=== PATIENT | male | born 1975 | race Hispanic/Latino ===

== ENCOUNTER 2022-12-05 19:15 | Emergency (ER) | payer OTHER ==
[2022-12-05 20:04] LABS: #Lymphocytes 0.5 thou/uL (1.20-3.40); #Monocytes 0.6 thou/uL (0.11-0.59); %Eosinophils 0.3 % (0.0-10.0); %Lymphocytes 3.7 % (21.0-51.0); %Monocytes 4.5 % (0.0-10.0); %Neutrophils 91.6 % (42.0-75.0); Hemoglobin 15.6 g/dL (14.0-18.0); Mean Corpuscular HGB CONC 34.3 g/dL (32.0-36.0); Mean Corpuscular Hemoglobin 30.1 pg (27.0-31.0); Mean Corpuscular Volume 87.7 fl (78.0-98.0); Mean Platelet Volume 8.8 fL (7.4-10.4); Platelet Count 177 10x3/uL (130-400); RBC Distribution Width 13.2 % (11.5-14.5); Red Blood Cell (RBC) Count 5.18 mill/uL (4.70-6.10); White Blood Cell (WBC) Count 13.1 10x3/uL (4.8-10.8)
[2022-12-05 20:28] LABS: ALT (SGPT) 53 U/L (8-55); AST (SGOT) 32 U/L (5-34); Albumin 4.4 g/dL (3.5-5.0); Alkaline Phosphatase 96 U/L (40-110); Anion Gap 13 mmol/L (10-20); BUN (Urea Nitrogen) 14 mg/dL (8.9-20.6); Bilirubin, Total 0.8 mg/dL (0.2-1.2); Calc. Creatinine Clearance 0 mL/min (70-130); Carbon Dioxide 19 mmol/L (22-29); Chloride 107 mmol/L (98-107); Estimated GFR 101; Globulin 3.6 g/dL (2.4-3.5); Glucose 141 mg/dL (70-105); Potassium 3.6 mmol/L (3.5-5.1); Sodium 135 mmol/L (136-145)
[2022-12-05] MEDS ORDERED: Ondansetron PF 4 MG/2 ML Vial ONE (21:24)
[2022-12-05] MEDS ORDERED: Morphine 4 MG/ML VIAL ONE (21:24)
== END 2022-12-05 23:43 | disposition home or self-care (01) ==
LOC: ERS 19:15
DX: K52.9 Noninfective gastroenteritis and colitis, unspecified (principal); R11.2 Nausea with vomiting, unspecified
CPT/HCPCS: 36415; 74177; 80053; 83690; 85025; 96361; 96374; 96375; J2270; J2405

== ENCOUNTER 2023-05-29 05:27 | Inpatient (IN) | payer OTHER ==
[2023-05-29] MEDS ORDERED: Ondansetron PF 4 MG/2 ML Vial ONE ×2 (05:49→15:06)
[2023-05-29] MEDS ORDERED: Morphine 4 MG/ML VIAL ONE ×5 (06:05→13:26)
[2023-05-29 06:08] LABS: #Eosinphils 0.1 thou/uL (0.0-0.7); #Monocytes 0.9 thou/uL (0.11-0.59); #Neutrophils 12.3 thou/uL (1.40-6.50); %Basophils 0.3 % (0.0-1.0); %Eosinophils 0.7 % (0.0-10.0); %Lymphocytes 10.7 % (21.0-51.0); %Monocytes 6.1 % (0.0-10.0); %Neutrophils 81.6 % (42.0-75.0); Hematocrit 47.1 % (42.0-52.0); Hemoglobin 15.9 g/dL (14.0-18.0); Mean Corpuscular HGB CONC 33.8 g/dL (32.0-36.0); Mean Corpuscular Hemoglobin 29.1 pg (27.0-31.0); Mean Corpuscular Volume 86.3 fl (78.0-98.0); Mean Platelet Volume 10.6 fL (7.4-10.4); Platelet Count 241 10x3/uL (130-400); RBC Distribution Width 14.3 % (11.5-14.5); Red Blood Cell (RBC) Count 5.46 mill/uL (4.70-6.10); White Blood Cell (WBC) Count 15.1 10x3/uL (4.8-10.8)
[2023-05-29 06:38] LABS: ALT (SGPT) 239 U/L (8-55); AST (SGOT) 320 U/L (5-34); Albumin 4.2 g/dL (3.5-5.0); Alkaline Phosphatase 125 U/L (40-110); Anion Gap 17 mmol/L (10-20); BUN (Urea Nitrogen) 14 mg/dL (8.9-20.6); Bilirubin, Total 2.2 mg/dL (0.2-1.2); Calc. Creatinine Clearance 0 mL/min (70-130); Calcium 9.6 mg/dL (7.8-10.44); Carbon Dioxide 18 mmol/L (22-29); Chloride 105 mmol/L (98-107); Estimated GFR 73; Globulin 3.8 g/dL (2.4-3.5); Glucose 165 mg/dL (70-105); Potassium 3.6 mmol/L (3.5-5.1); Sodium 136 mmol/L (136-145)
[2023-05-29] MEDS ORDERED: fentaNYL 50 mcg/mL 1 mL Vial ONE (06:45)
[2023-05-29 07:06] LABS: Lipase 12257 U/L (8-78)
[2023-05-29] MEDS ORDERED: Ketorolac Tromethamine 30 MG/ML VIAL ONE (07:22)
[2023-05-29] MEDS ORDERED: Piperacillin/Tazobactam 4.5 GM VIAL ONE (07:33)
[2023-05-29 07:57] LABS: Bacteria/HPF None Seen HPF (None Seen); Bilirubin Negative (Negative); Blood, Urine Negative (Negative); CAUTI Indications for Culture Pelvic or flank pain; Clarity Clear (Clear); Glucose, Urine (Dipstick) Normal (Negative); Ketone, Urine Negative (Negative); Leukocyte Negative Leu/uL (Negative); Nitrite Negative (Negative); Protein, Urine (Dipstick) Negative (Neg-Trace); RBC/HPF 0-3 HPF (0-3); Specific Gravity, Urine 1.046 (1.002-1.036); Squamous Epithelial None Seen HPF (0-3); Urobilinogen Normal mg/dL (Less than 2); WBC/HPF 0-3 HPF (0-3)
[2023-05-29 07:58] LABS: Urine Culture Reflex No No
[2023-05-29 09:45] LABS: Lactic Acid 1.8 mmol/L (0.5-2.2)
[2023-05-29] MEDS ORDERED: Iopamidol-370 76% 500 ML MDV (1 ML CHARGE) ONE ×2 (10:51)
[2023-05-29] MEDS ORDERED: Ondansetron ODT 4 MG TAB PO PRN (16:19)
[2023-05-29] MEDS ORDERED: Piperacillin/Tazobactam 3.375 GM in Sodium Chloride 0.9% 100 ML IVPB SCH (16:30)
[2023-05-29] MEDS: Lactated Ringer's 1,000 ML IV SCH (17:03)
[2023-05-29] MEDS: Ondansetron PF 4 MG/2 ML Vial IVP PRN ×2 (17:05→23:38)
[2023-05-29] MEDS: Morphine 4 MG/ML VIAL SLOW IVP PRN ×2 (17:05→21:05)
[2023-05-29 17:25] VITALS: BMI 43.6
[2023-05-29 17:48] LABS: Cardiac Risk 2.6 (Less than 4.5)
[2023-05-29] MEDS ORDERED: Piperacillin/Tazobactam 4.5 GM in Sodium Chloride 0.9% 100 ML IVPB SCH (18:00)
[2023-05-29] MEDS ORDERED: Promethazine HCl 12.5 MG in Sodium Chloride 0.9% 50 ML IVPB SCH (20:30)
[2023-05-29] MEDS: Famotidine/PF 20 mg/2ml Vial SLOW IVP SCH (21:04)
[2023-05-29] MEDS: Piperacillin/Tazobactam 3.375 GM in Sodium Chloride 0.9% 100 ML IVPB SCH (21:41)
[2023-05-30] MEDS: Lactated Ringer's 1,000 ML IV SCH ×7 (00:37→23:49)
[2023-05-30] MEDS: Morphine 4 MG/ML VIAL SLOW IVP PRN ×3 (01:53→09:41)
[2023-05-30] MEDS: Ondansetron PF 4 MG/2 ML Vial IVP PRN (05:39)
[2023-05-30] MEDS: Piperacillin/Tazobactam 3.375 GM in Sodium Chloride 0.9% 100 ML IVPB SCH ×3 (05:43→23:06)
[2023-05-30 06:12] LABS: Hemoglobin 17.2 g/dL (14.0-18.0); Mean Corpuscular HGB CONC 34.4 g/dL (32.0-36.0); Mean Corpuscular Hemoglobin 29.3 pg (27.0-31.0); Mean Platelet Volume 11.1 fL (7.4-10.4); Platelet Count 222 10x3/uL (130-400); RBC Distribution Width 14.9 % (11.5-14.5); Red Blood Cell (RBC) Count 5.88 mill/uL (4.70-6.10); White Blood Cell (WBC) Count 29.1 10x3/uL (4.8-10.8)
[2023-05-30 06:25] LABS: Delete Auto Diff?? YES; Manual Diff?? YES
[2023-05-30 06:40] LABS: ALT (SGPT) 183 U/L (8-55); AST (SGOT) 89 U/L (5-34); Albumin 3.7 g/dL (3.5-5.0); Alkaline Phosphatase 112 U/L (40-110); Anion Gap 14 mmol/L (10-20); BUN (Urea Nitrogen) 15 mg/dL (8.9-20.6); Calc. Creatinine Clearance 133 mL/min (70-130); Calcium 8.6 mg/dL (7.8-10.44); Carbon Dioxide 20 mmol/L (22-29); Chloride 108 mmol/L (98-107); Estimated GFR 80; Globulin 3.1 g/dL (2.4-3.5); Glucose 180 mg/dL (70-105); Magnesium 1.5 mg/dL (1.6-2.6); Potassium 3.8 mmol/L (3.5-5.1); Protein, Total 6.8 g/dL (6.0-8.3); Sodium 138 mmol/L (136-145)
[2023-05-30 06:59] LABS: Lipase 1778 U/L (8-78)
[2023-05-30 07:08] LABS: Band 21 % (5-11); CellaVision Operator ID lab.abc; Lymphocytes 2 % (21-51); Monocytes 2 % (0-10); Neutrophil 75 % (42-75); Platelet Adequacy Comment Platelets Normal; RBC Morphology Within Normal Limits; Total Cell Count 101
[2023-05-30] MEDS: Famotidine/PF 20 mg/2ml Vial SLOW IVP SCH ×2 (08:31→21:35)
[2023-05-30] MEDS ORDERED: diphenhydrAMINE 50 MG/ML VIAL IM PRN (12:44)
[2023-05-30] MEDS ORDERED: Promethazine HCl 25 MG/ML VIAL IM PRN (12:44)
[2023-05-30] MEDS ORDERED: Zolpidem Tartrate 5 MG TAB PO PRN (12:44)
[2023-05-30] MEDS ORDERED: Ondansetron PF 4 MG/2 ML Vial IVP PRN (12:44)
[2023-05-30] MEDS ORDERED: diphenhydrAMINE 25 MG CAP PO PRN (12:44)
[2023-05-30] MEDS ORDERED: Naloxone HCl 0.4 mg/ml Vial IV PRN (12:44)
[2023-05-30] MEDS ORDERED: HYDROmorphone 10 mg/100 ml CADD IVPB PRN (12:44)
[2023-05-30] MEDS ORDERED: diphenhydrAMINE 50 MG/ML VIAL IVP PRN (12:44)
[2023-05-30] MEDS ORDERED: Communication Order-Pharmacy FS SCH (12:45)
[2023-05-30] MEDS ORDERED: Lorazepam 2 MG/ML VIAL SLOW IVP PRN (14:29)
[2023-05-30] MEDS ORDERED: Electrolyte Replacement Protocol 1 EACH FS SCH (14:30)
[2023-05-30] MEDS: HYDROmorphone/PF 10 MG in Sodium Chloride 0.9% 99 ML IVPB PRN (14:40)
[2023-05-30] MEDS: Thiamine HCl 200 MG/2 ML VIAL SLOW IVP SCH (14:46)
[2023-05-30 16:56] LABS: Hematocrit 50.6 % (42.0-52.0); Hemoglobin 16.9 g/dL (14.0-18.0); Mean Corpuscular HGB CONC 33.4 g/dL (32.0-36.0); Mean Corpuscular Hemoglobin 28.9 pg (27.0-31.0); Mean Corpuscular Volume 86.6 fl (78.0-98.0); Mean Platelet Volume 11.5 fL (7.4-10.4); Platelet Count 197 10x3/uL (130-400); RBC Distribution Width 15.1 % (11.5-14.5); Red Blood Cell (RBC) Count 5.84 mill/uL (4.70-6.10); White Blood Cell (WBC) Count 29.7 10x3/uL (4.8-10.8)
[2023-05-30 17:08] LABS: Delete Auto Diff?? YES; Manual Diff?? YES
[2023-05-30 17:31] LABS: Band 42 % (5-11); CellaVision Operator ID LAB.KB; Lymphocytes 2 % (21-51); Monocytes 6 % (0-10); Neutrophil 49 % (42-75); Platelet Adequacy Comment Platelets Normal; Polychromasia SLIGHT = 2-3 cells HPF (0-2); Smudge Cells 4.9 %; Total Cell Count 102
[2023-05-30 18:09] LABS: Albumin 3.5 g/dL (3.5-5.0)
[2023-05-30 18:10] LABS: Calcium 8.4 mg/dL (7.8-10.44); Chloride 107 mmol/L (98-107); Potassium 4.7 mmol/L (3.5-5.1); Sodium 134 mmol/L (136-145)
[2023-05-30 18:11] LABS: Globulin 3.4 g/dL (2.4-3.5); Glucose 143 mg/dL (70-105); Protein, Total 6.9 g/dL (6.0-8.3)
[2023-05-30 18:13] LABS: Anion Gap 19 mmol/L (10-20); Bilirubin, Total 1.6 mg/dL (0.2-1.2); Carbon Dioxide 13 mmol/L (22-29)
[2023-05-30 18:14] LABS: Alkaline Phosphatase 95 U/L (40-110); Calc. Creatinine Clearance 141 mL/min (70-130); Estimated GFR 85; Phosphorus 1.8 mg/dL (2.3-4.7)
[2023-05-30 18:15] LABS: BUN (Urea Nitrogen) 16 mg/dL (8.9-20.6)
[2023-05-30 18:16] LABS: AST (SGOT) 71 U/L (5-34); Bilirubin, Direct 0.6 mg/dL (0.1-0.3)
[2023-05-30 18:17] LABS: ALT (SGPT) 150 U/L (8-55); Magnesium 1.5 mg/dL (1.6-2.6)
[2023-05-31] MEDS: Lactated Ringer's 1,000 ML IV SCH ×5 (03:50→18:19)
[2023-05-31] MEDS: Piperacillin/Tazobactam 3.375 GM in Sodium Chloride 0.9% 100 ML IVPB SCH ×2 (06:00→14:16)
[2023-05-31] MEDS: Multivit, Therapeutic 1 TAB PO SCH (08:18)
[2023-05-31] MEDS: Folic Acid 1 MG TAB PO SCH (08:18)
[2023-05-31] MEDS: Famotidine/PF 20 mg/2ml Vial SLOW IVP SCH ×2 (08:18→21:00)
[2023-05-31 10:04] LABS: #Basophils 0.1 thou/uL (0.0-0.2); #Monocytes 1.5 thou/uL (0.11-0.59); %Basophils 0.3 % (0.0-1.0); %Eosinophils 0.1 % (0.0-10.0); %Lymphocytes 4.7 % (21.0-51.0); %Monocytes 6.4 % (0.0-10.0); %Neutrophils 86.4 % (42.0-75.0); Hematocrit 45.7 % (42.0-52.0); Hemoglobin 15.3 g/dL (14.0-18.0); Mean Corpuscular HGB CONC 33.5 g/dL (32.0-36.0); Mean Corpuscular Hemoglobin 29.4 pg (27.0-31.0); Mean Corpuscular Volume 87.7 fl (78.0-98.0); Mean Platelet Volume 10.9 fL (7.4-10.4); Platelet Count 142 10x3/uL (130-400); RBC Distribution Width 14.7 % (11.5-14.5); Red Blood Cell (RBC) Count 5.21 mill/uL (4.70-6.10); White Blood Cell (WBC) Count 24.3 10x3/uL (4.8-10.8)
[2023-05-31 10:30] LABS: ALT (SGPT) 90 U/L (8-55); AST (SGOT) 36 U/L (5-34); Alkaline Phosphatase 67 U/L (40-110); Anion Gap 8 mmol/L (10-20); BUN (Urea Nitrogen) 14 mg/dL (8.9-20.6); Bilirubin, Total 1.4 mg/dL (0.2-1.2); Calc. Creatinine Clearance 174 mL/min (70-130); Calcium 8.1 mg/dL (7.8-10.44); Carbon Dioxide 27 mmol/L (22-29); Chloride 106 mmol/L (98-107); Estimated GFR 106; Globulin 2.9 g/dL (2.4-3.5); Glucose 134 mg/dL (70-105); Protein, Total 5.9 g/dL (6.0-8.3); Sodium 137 mmol/L (136-145)
[2023-05-31 11:45] LABS: Syphilis Antibody Nonreactive (Nonreactive); Syphilis Antibody Index 0.04 S/CO (<1.00 Non-Reactive)
[2023-05-31] MEDS: Thiamine HCl 200 MG/2 ML VIAL SLOW IVP SCH (14:16)
[2023-05-31] MEDS: HYDROmorphone/PF 10 MG in Sodium Chloride 0.9% 99 ML IVPB PRN (16:28)
[2023-06-01] MEDS: Piperacillin/Tazobactam 3.375 GM in Sodium Chloride 0.9% 100 ML IVPB SCH ×4 (00:10→23:00)
[2023-06-01] MEDS: Lactated Ringer's 1,000 ML IV SCH ×5 (02:24→20:27)
[2023-06-01 05:17] LABS: Hematocrit 47.2 % (42.0-52.0); Hemoglobin 15.6 g/dL (14.0-18.0); Mean Corpuscular HGB CONC 33.1 g/dL (32.0-36.0); Mean Corpuscular Hemoglobin 29.1 pg (27.0-31.0); Mean Corpuscular Volume 88.1 fl (78.0-98.0); Mean Platelet Volume 11.3 fL (7.4-10.4); Platelet Count 182 10x3/uL (130-400); RBC Distribution Width 14.7 % (11.5-14.5); Red Blood Cell (RBC) Count 5.36 mill/uL (4.70-6.10); White Blood Cell (WBC) Count 28.3 10x3/uL (4.8-10.8)
[2023-06-01 05:24] LABS: Delete Auto Diff?? YES; Manual Diff?? YES
[2023-06-01 05:40] LABS: ALT (SGPT) 63 U/L (8-55); AST (SGOT) 30 U/L (5-34); Albumin 2.9 g/dL (3.5-5.0); Alkaline Phosphatase 82 U/L (40-110); Anion Gap 11 mmol/L (10-20); BUN (Urea Nitrogen) 16 mg/dL (8.9-20.6); Bilirubin, Total 1.2 mg/dL (0.2-1.2); Calc. Creatinine Clearance 176 mL/min (70-130); Calcium 8.2 mg/dL (7.8-10.44); Carbon Dioxide 26 mmol/L (22-29); Chloride 103 mmol/L (98-107); Estimated GFR 106; Glucose 153 mg/dL (70-105); Potassium 4.1 mmol/L (3.5-5.1); Protein, Total 5.9 g/dL (6.0-8.3); Sodium 136 mmol/L (136-145)
[2023-06-01 05:51] LABS: Band 9 % (5-11); CellaVision Operator ID lab.abc; Metamyelocyte 1 % (0-0); Monocytes 5 % (0-10); Neutrophil 85 % (42-75); Platelet Adequacy Comment Platelets Normal; Polychromasia SLIGHT = 2-3 cells HPF (0-2); RBC Morphology Within Normal Limits; Smudge Cells 5.9 %; Total Cell Count 102
[2023-06-01] MEDS: HYDROmorphone/PF 10 MG in Sodium Chloride 0.9% 99 ML IVPB PRN (07:36)
[2023-06-01] MEDS: Famotidine/PF 20 mg/2ml Vial SLOW IVP SCH ×2 (07:37→21:48)
[2023-06-01] MEDS: Folic Acid 1 MG TAB PO SCH (07:38)
[2023-06-01] MEDS: Multivit, Therapeutic 1 TAB PO SCH (07:38)
[2023-06-01] MEDS: Thiamine HCl 200 MG/2 ML VIAL SLOW IVP SCH (14:35)
[2023-06-01] MEDS: Simethicone Chewable 80 MG TAB PO PRN (21:47)
[2023-06-02] MEDS: HYDROmorphone/PF 10 MG in Sodium Chloride 0.9% 99 ML IVPB PRN (00:01)
[2023-06-02 04:38] LABS: Hematocrit 42.6 % (42.0-52.0); Hemoglobin 14.4 g/dL (14.0-18.0); Mean Corpuscular HGB CONC 33.8 g/dL (32.0-36.0); Mean Corpuscular Hemoglobin 29.4 pg (27.0-31.0); Mean Corpuscular Volume 87.1 fl (78.0-98.0); Mean Platelet Volume 11.6 fL (7.4-10.4); Platelet Count 165 10x3/uL (130-400); RBC Distribution Width 14.5 % (11.5-14.5); Red Blood Cell (RBC) Count 4.89 mill/uL (4.70-6.10); White Blood Cell (WBC) Count 24.9 10x3/uL (4.8-10.8)
[2023-06-02 04:57] LABS: ALT (SGPT) 43 U/L (8-55); AST (SGOT) 23 U/L (5-34); Albumin 2.5 g/dL (3.5-5.0); Alkaline Phosphatase 61 U/L (40-110); Anion Gap 6 mmol/L (10-20); BUN (Urea Nitrogen) 19 mg/dL (8.9-20.6); Calc. Creatinine Clearance 193 mL/min (70-130); Calcium 7.8 mg/dL (7.8-10.44); Carbon Dioxide 27 mmol/L (22-29); Chloride 103 mmol/L (98-107); Estimated GFR 108; Globulin 2.8 g/dL (2.4-3.5); Glucose 148 mg/dL (70-105); Potassium 3.9 mmol/L (3.5-5.1); Protein, Total 5.3 g/dL (6.0-8.3); Sodium 132 mmol/L (136-145)
[2023-06-02 04:59] LABS: Delete Auto Diff?? YES; Manual Diff?? YES
[2023-06-02] MEDS: Lactated Ringer's 1,000 ML IV SCH (05:34)
[2023-06-02 06:23] LABS: Anisocytosis SLIGHT = 6-15 cells HPF (0-5); Band 14 % (5-11); CellaVision Operator ID LAB.JMM; Lymphocytes 3 % (21-51); Macrocytosis SLIGHT = 6-15 cells HPF (0-5); Metamyelocyte 3 % (0-0); Monocytes 3 % (0-10); Myelocyte 4 % (0-0); Neutrophil 69 % (42-75); Platelet Adequacy Comment Platelets Normal; Reactive Lymphocytes 4 % (0-10); Smudge Cells 13.8 %; Total Cell Count 116
[2023-06-02] MEDS: Piperacillin/Tazobactam 3.375 GM in Sodium Chloride 0.9% 100 ML IVPB SCH (06:38)
[2023-06-02] MEDS ORDERED: fentaNYL 50 mcg/mL 1 mL Vial ONE (06:51)
[2023-06-02] MEDS ORDERED: Midazolam HCl 2 mg/2 ml Vial ONE (06:58)
[2023-06-02] MEDS ORDERED: Bupivacaine HCl 0.5%/Epinephrine 1:200,000/PF 30 ml Vial ONE (06:59)
[2023-06-02] MEDS ORDERED: Iopamidol 15 ML ONE (06:59)
[2023-06-02] MEDS ORDERED: Ondansetron PF 4 MG/2 ML Vial ONE (07:39)
[2023-06-02] MEDS ORDERED: Glycopyrrolate 0.2 MG/ML 5 ML SYRINGE ONE (07:39)
[2023-06-02] MEDS ORDERED: Dexamethasone 20 MG/5 ML VIAL ONE (07:39)
[2023-06-02] MEDS ORDERED: NEOSTIGMINE 3 MG/3 ML SYR 3 MG/3 ML SYRINGE ONE (07:39)
[2023-06-02] MEDS ORDERED: Rocuronium Bromide 10 MG/ML (10ML VIAL) ONE (07:39)
[2023-06-02] MEDS ORDERED: PROPOFOL 200 MG/20 ML VIAL ONE (07:39)
[2023-06-02] MEDS ORDERED: Lidocaine 1% PF 5 ML VIAL ONE (07:39)
[2023-06-02] MEDS ORDERED: Morphine 4 MG/ML VIAL SLOW IVP PRN (07:54)
[2023-06-02] MEDS ORDERED: Acetaminophen 500 MG TAB PO SCH (08:00)
[2023-06-02] MEDS ORDERED: SUGAMMADEX SODIUM 200 MG/2 ML VIAL ONE (08:02)
[2023-06-02] MEDS: Sodium Chloride 0.9% 1,000 ML IV SCH ×3 (13:32→23:38)
[2023-06-02] MEDS: Senokot 8.6 MG TAB PO SCH ×2 (13:32→20:56)
[2023-06-02] MEDS: Folic Acid 1 MG TAB PO SCH (13:33)
[2023-06-02] MEDS: Multivit, Therapeutic 1 TAB PO SCH (13:33)
[2023-06-02] MEDS: Thiamine 100 MG TAB PO SCH (13:33)
[2023-06-02] MEDS: Polyethylene Glycol 3350 17 GM Packet PO SCH (13:33)
[2023-06-02] MEDS: Ketorolac Tromethamine 30 MG/ML VIAL IVP SCH ×3 (13:33→23:38)
[2023-06-02] MEDS: Acetaminophen 500 MG TAB PO SCH ×3 (13:50→20:56)
[2023-06-02] MEDS: LevoFLOXacin 750 mg/D5W 750 MG in Premix Bag 1 BAG IVPB SCH (20:55)
[2023-06-03] MEDS: Simethicone Chewable 80 MG TAB PO PRN (01:05)
[2023-06-03] MEDS: Ketorolac Tromethamine 30 MG/ML VIAL IVP SCH ×4 (05:02→23:39)
[2023-06-03 05:54] LABS: Hematocrit 36.9 % (42.0-52.0); Hemoglobin 12.1 g/dL (14.0-18.0); Mean Corpuscular HGB CONC 32.8 g/dL (32.0-36.0); Mean Corpuscular Hemoglobin 28.6 pg (27.0-31.0); Mean Corpuscular Volume 87.2 fl (78.0-98.0); Mean Platelet Volume 11.8 fL (7.4-10.4); Platelet Count 134 10x3/uL (130-400); RBC Distribution Width 14.5 % (11.5-14.5); Red Blood Cell (RBC) Count 4.23 mill/uL (4.70-6.10); White Blood Cell (WBC) Count 18.2 10x3/uL (4.8-10.8)
[2023-06-03 05:58] LABS: Delete Auto Diff?? YES; Manual Diff?? YES
[2023-06-03 06:13] LABS: ALT (SGPT) 68 U/L (8-55); AST (SGOT) 81 U/L (5-34); Albumin 2.7 g/dL (3.5-5.0); Alkaline Phosphatase 75 U/L (40-110); Anion Gap 12 mmol/L (10-20); BUN (Urea Nitrogen) 26 mg/dL (8.9-20.6); Calc. Creatinine Clearance 169 mL/min (70-130); Calcium 7.6 mg/dL (7.8-10.44); Carbon Dioxide 24 mmol/L (22-29); Chloride 101 mmol/L (98-107); Estimated GFR 106; Globulin 3.1 g/dL (2.4-3.5); Glucose 123 mg/dL (70-105); Potassium 3.9 mmol/L (3.5-5.1); Protein, Total 5.8 g/dL (6.0-8.3); Sodium 133 mmol/L (136-145)
[2023-06-03 06:36] LABS: Band 8 % (5-11); CellaVision Operator ID lab.abc; Large Platelets 2.9 % (0-5); Lymphocytes 3 % (21-51); Metamyelocyte 5 % (0-0); Monocytes 10 % (0-10); Myelocyte 2 % (0-0); Neutrophil 73 % (42-75); Platelet Adequacy Comment Platelets Normal; RBC Morphology Within Normal Limits; Smudge Cells 10.8 %; Total Cell Count 102
[2023-06-03] MEDS: Acetaminophen 500 MG TAB PO SCH ×4 (10:26→21:24)
[2023-06-03] MEDS: Multivit, Therapeutic 1 TAB PO SCH (10:26)
[2023-06-03] MEDS: Folic Acid 1 MG TAB PO SCH (10:26)
[2023-06-03] MEDS: Sodium Chloride 0.9% 1,000 ML IV SCH ×3 (10:27→23:40)
[2023-06-03] MEDS: Senokot 8.6 MG TAB PO SCH ×2 (10:27→21:28)
[2023-06-03] MEDS: Polyethylene Glycol 3350 17 GM Packet PO SCH (10:27)
[2023-06-03] MEDS: traMADol HCl 50 MG TAB PO PRN ×2 (10:36→21:24)
[2023-06-03] MEDS: Thiamine 100 MG TAB PO SCH (10:36)
[2023-06-03] MEDS: LevoFLOXacin 750 mg/D5W 750 MG in Premix Bag 1 BAG IVPB SCH (21:27)
[2023-06-04] MEDS: traMADol HCl 50 MG TAB PO PRN ×2 (04:51→23:13)
[2023-06-04] MEDS: Ketorolac Tromethamine 30 MG/ML VIAL IVP SCH ×4 (05:59→23:07)
[2023-06-04 08:18] LABS: Hematocrit 35.3 % (42.0-52.0); Hemoglobin 12.2 g/dL (14.0-18.0); Mean Corpuscular HGB CONC 34.6 g/dL (32.0-36.0); Mean Corpuscular Hemoglobin 29.3 pg (27.0-31.0); Mean Corpuscular Volume 84.9 fl (78.0-98.0); Mean Platelet Volume 11.6 fL (7.4-10.4); Platelet Count 127 10x3/uL (130-400); RBC Distribution Width 14.3 % (11.5-14.5); Red Blood Cell (RBC) Count 4.16 mill/uL (4.70-6.10); White Blood Cell (WBC) Count 16.3 10x3/uL (4.8-10.8)
[2023-06-04] MEDS: Acetaminophen 500 MG TAB PO SCH ×5 (08:34→20:21)
[2023-06-04] MEDS: Polyethylene Glycol 3350 17 GM Packet PO SCH (08:34)
[2023-06-04] MEDS: Multivit, Therapeutic 1 TAB PO SCH (08:35)
[2023-06-04] MEDS: Thiamine 100 MG TAB PO SCH (08:35)
[2023-06-04] MEDS: Senokot 8.6 MG TAB PO SCH ×2 (08:35→20:21)
[2023-06-04] MEDS: Folic Acid 1 MG TAB PO SCH (08:36)
[2023-06-04 08:46] LABS: ALT (SGPT) 79 U/L (8-55); AST (SGOT) 75 U/L (5-34); Albumin 2.7 g/dL (3.5-5.0); Alkaline Phosphatase 74 U/L (40-110); Anion Gap 21 mmol/L (10-20); BUN (Urea Nitrogen) 18 mg/dL (8.9-20.6); Bilirubin, Total 0.8 mg/dL (0.2-1.2); Calc. Creatinine Clearance 199 mL/min (70-130); Calcium 7.5 mg/dL (7.8-10.44); Carbon Dioxide 19 mmol/L (22-29); Chloride 103 mmol/L (98-107); Estimated GFR 111; Globulin 2.7 g/dL (2.4-3.5); Glucose 127 mg/dL (70-105); Potassium 3.5 mmol/L (3.5-5.1); Protein, Total 5.4 g/dL (6.0-8.3); Sodium 139 mmol/L (136-145)
[2023-06-04] MEDS: Sodium Chloride 0.9% 1,000 ML IV SCH ×3 (08:54→23:07)
[2023-06-04 09:27] LABS: Manual Diff?? YES
[2023-06-04 09:28] LABS: Delete Auto Diff?? YES
[2023-06-04 12:42] LABS: Band 14 % (5-11); Lymphocytes 5 % (21-51); Metamyelocyte 3 % (0-0); Monocytes 6 % (0-10); Neutrophil 71 % (42-75); Nucleated RBC (Manual Ct) 1 % (0); Reactive Lymphocytes 1 % (0-10)
[2023-06-04 12:43] LABS: Platelet Adequacy Comment Appears Decreased; Polychromasia SLIGHT = 2-3 cells (100X) (0-2/hpf)
[2023-06-04] MEDS: LevoFLOXacin 750 mg/D5W 750 MG in Premix Bag 1 BAG IVPB SCH (19:41)
[2023-06-05] MEDS: Simethicone Chewable 80 MG TAB PO PRN (04:09)
[2023-06-05] MEDS: Ketorolac Tromethamine 30 MG/ML VIAL IVP SCH (04:50)
[2023-06-05] MEDS: traMADol HCl 50 MG TAB PO PRN ×2 (04:53→20:55)
[2023-06-05 05:32] LABS: Hemoglobin 11.7 g/dL (14.0-18.0); Mean Corpuscular HGB CONC 33.4 g/dL (32.0-36.0); Mean Corpuscular Volume 86.6 fl (78.0-98.0); Platelet Count 158 10x3/uL (130-400); RBC Distribution Width 14.7 % (11.5-14.5); Red Blood Cell (RBC) Count 4.04 mill/uL (4.70-6.10); White Blood Cell (WBC) Count 14.5 10x3/uL (4.8-10.8)
[2023-06-05 05:54] LABS: ALT (SGPT) 73 U/L (8-55); AST (SGOT) 53 U/L (5-34); Albumin 2.6 g/dL (3.5-5.0); Alkaline Phosphatase 75 U/L (40-110); Anion Gap 9 mmol/L (10-20); BUN (Urea Nitrogen) 10 mg/dL (8.9-20.6); Bilirubin, Total 1.1 mg/dL (0.2-1.2); Calc. Creatinine Clearance 196 mL/min (70-130); Calcium 7.8 mg/dL (7.8-10.44); Carbon Dioxide 26 mmol/L (22-29); Chloride 104 mmol/L (98-107); Estimated GFR 111; Globulin 2.8 g/dL (2.4-3.5); Glucose 145 mg/dL (70-105); Potassium 3.3 mmol/L (3.5-5.1); Protein, Total 5.4 g/dL (6.0-8.3); Sodium 136 mmol/L (136-145)
[2023-06-05 06:13] LABS: Manual Diff?? YES
[2023-06-05 06:14] LABS: Delete Auto Diff?? YES
[2023-06-05 07:07] LABS: Anisocytosis SLIGHT = 6-15 cells HPF (0-5); Band 20 % (5-11); CellaVision Operator ID lab.dlt; Large Platelets 0.9 % (0-5); Lymphocytes 4 % (21-51); Monocytes 10 % (0-10); Neutrophil 63 % (42-75); Nucleated RBC (Manual Ct) 1 % (0); Platelet Adequacy Comment Platelets Normal; Polychromasia SLIGHT = 2-3 cells HPF (0-2); Reactive Lymphocytes 4 % (0-10); Total Cell Count 115
[2023-06-05] MEDS: Sodium Chloride 0.9% 1,000 ML IV SCH (07:27)
[2023-06-05] MEDS ORDERED: Potassium Bicarbonate/Cit Ac 20 MEQ TAB PO SCH (09:15)
[2023-06-05] MEDS: Polyethylene Glycol 3350 17 GM Packet PO SCH (10:08)
[2023-06-05] MEDS: Acetaminophen 500 MG TAB PO SCH ×4 (10:09→20:55)
[2023-06-05] MEDS: Senokot 8.6 MG TAB PO SCH ×2 (10:10→20:55)
[2023-06-05] MEDS: Thiamine 100 MG TAB PO SCH (10:10)
[2023-06-05] MEDS: Multivit, Therapeutic 1 TAB PO SCH (10:10)
[2023-06-05] MEDS: Folic Acid 1 MG TAB PO SCH (10:10)
[2023-06-05] MEDS ORDERED: Furosemide 40 MG/4 ML VIAL SLOW IVP SCH (11:45)
[2023-06-05] MEDS ORDERED: Ibuprofen 600 MG TAB PO PRN (15:18)
[2023-06-06] MEDS: traMADol HCl 50 MG TAB PO PRN (04:02)
[2023-06-06 05:50] LABS: HBCM Index 0.11 S/CO (0-0.79); HBSAg Index 0.42 S/CO (0-0.99); Hep A IgM AB Non-Reactive S/CO (NonReactive); Hep A IgM S/CO 0.46 S/CO (0-0.79); Hep B Surf Ag Non-Reactive S/CO (NonReactive); Hep C IgG Ab Non-Reactive S/CO (NonReactive); Hep C Index 0.08 S/CO (0-0.79); Hepatitis B Core IgM Abs Non-Reactive S/CO (NonReactive)
[2023-06-06] MEDS ORDERED: Potassium Chloride 20 MEQ TAB PO SCH (07:45)
[2023-06-06 09:26] LABS: Anion Gap 15 mmol/L (10-20); BUN (Urea Nitrogen) 9 mg/dL (8.9-20.6); Calc. Creatinine Clearance 204 mL/min (70-130); Calcium 7.9 mg/dL (7.8-10.44); Carbon Dioxide 19 mmol/L (22-29); Chloride 105 mmol/L (98-107); Estimated GFR 110; Glucose 139 mg/dL (70-105); Potassium 3.8 mmol/L (3.5-5.1); Sodium 135 mmol/L (136-145)
[2023-06-06] MEDS: Folic Acid 1 MG TAB PO SCH (10:16)
[2023-06-06] MEDS: Acetaminophen 500 MG TAB PO SCH ×3 (10:16→16:14)
[2023-06-06] MEDS: Thiamine 100 MG TAB PO SCH (10:16)
[2023-06-06] MEDS: Senokot 8.6 MG TAB PO SCH (10:17)
[2023-06-06] MEDS: Polyethylene Glycol 3350 17 GM Packet PO SCH (10:17)
[2023-06-06] MEDS: Multivit, Therapeutic 1 TAB PO SCH (10:17)
[2023-06-06] MEDS ORDERED: Furosemide 20 MG/2 ML VIAL SLOW IVP SCH (11:00)
[2023-06-06 11:39] LABS: #Eosinphils 0.1 thou/uL (0.0-0.7); #Monocytes 0.9 thou/uL (0.11-0.59); #Neutrophils 14.9 thou/uL (1.40-6.50); %Basophils 0.2 % (0.0-1.0); %Eosinophils 0.3 % (0.0-10.0); %Lymphocytes 6.5 % (21.0-51.0); %Monocytes 5.2 % (0.0-10.0); %Neutrophils 83.7 % (42.0-75.0); Hematocrit 34.2 % (42.0-52.0); Hemoglobin 11.5 g/dL (14.0-18.0); Mean Corpuscular HGB CONC 33.6 g/dL (32.0-36.0); Mean Corpuscular Hemoglobin 29.2 pg (27.0-31.0); Mean Corpuscular Volume 86.8 fl (78.0-98.0); Mean Platelet Volume 11.7 fL (7.4-10.4); Platelet Count 193 10x3/uL (130-400); Red Blood Cell (RBC) Count 3.94 mill/uL (4.70-6.10); White Blood Cell (WBC) Count 17.8 10x3/uL (4.8-10.8)
[2023-06-06 12:48] VITALS: BP 145/90
[2023-06-06 15:47] VITALS: TEMP 98.2
== END 2023-06-06 18:30 | disposition home or self-care (01) | DRG 853 ==
LOC: ERS 05:27 → T4-A 15:08 → IMCU/EMU 05-30 17:53 → SJJU 06-02 22:58
PROVIDERS: ADMIT Internal Medicine; ATTEND Internal Medicine
PROC: 3E03329 Introduction of Other Anti-infective into Peripheral Vein, Percutaneous Approach (ICD-10-PCS; 2023-05-29)
PROC: 0FT44ZZ Resection of Gallbladder, Percutaneous Endoscopic Approach (ICD-10-PCS; principal; 2023-06-02)
PROC: 0FB14ZX Excision of Right Lobe Liver, Percutaneous Endoscopic Approach, Diagnostic (ICD-10-PCS; 2023-06-02)
PROC: BF141ZZ Fluoroscopy of Gallbladder, Bile Ducts and Pancreatic Ducts using Low Osmolar Contrast (ICD-10-PCS; 2023-06-02)
DX: A41.9 Sepsis, unspecified organism (principal); K85.10 Biliary acute pancreatitis without necrosis or infection; F10.239 Alcohol dependence with withdrawal, unspecified; E87.1 Hypo-osmolality and hyponatremia; Z68.42 Body mass index [BMI] 45.0-49.9, adult; I10 Essential (primary) hypertension; G43.909 Migraine, unspecified, not intractable, without status migrainosus; K76.0 Fatty (change of) liver, not elsewhere classified; F10.229 Alcohol dependence with intoxication, unspecified; E87.6 Hypokalemia; E87.70 Fluid overload, unspecified; K74.00 Hepatic fibrosis, unspecified; E66.01 Morbid (severe) obesity due to excess calories; K81.9 Cholecystitis, unspecified; K74.60 Unspecified cirrhosis of liver; Z98.890 Other specified postprocedural states; Z79.899 Other long term (current) drug therapy; Z88.8 Allergy status to other drugs, medicaments and biological substances
CPT/HCPCS: 36415; 36416; 47532; 71045; 71260; 74177; 76705; 80048; 80053; 80061; 80074; 81001; 82248; 83605; 83690; 83735; 84100; 84145; 84484; 85025; 86780; 86850; 86870; 86900; 86901; 86922; 87040; 88304; 88307; 88313; 93005; 96365; 96375; 96376; C1713; C1889; J1100; J1170; J1650; J1885; J1940; J1956; J2250; J2270; J2405; J2543; J2550; J2704; J3010; J3411; J3490; J7050; J7120; Q9967; S0028

== ENCOUNTER 2024-03-22 06:43 | Day surgery (SDC) | payer OTHER ==
[2024-03-21 11:23] VITALS: BMI 39.1
[2024-03-22] MEDS ORDERED: Lidocaine 1% PF 5 ML VIAL ONE (06:58)
[2024-03-22] MEDS ORDERED: PROPOFOL 40 ML ONE (06:58)
== END 2024-03-22 09:36 | disposition home or self-care (01) ==
LOC: SDC 06:43
PROVIDERS: ATTEND Internal Medicine Gastroenterology
PROC: 0DBN8ZZ Excision of Sigmoid Colon, Via Natural or Artificial Opening Endoscopic (ICD-10-PCS; principal; 2024-03-22)
DX: D12.5 Benign neoplasm of sigmoid colon (principal); K92.2 Gastrointestinal hemorrhage, unspecified; I10 Essential (primary) hypertension; Z88.1 Allergy status to other antibiotic agents; Z86.010 Personal history of colon polyps; Z90.49 Acquired absence of other specified parts of digestive tract; Z88.2 Allergy status to sulfonamides; Z91.018 Allergy to other foods
CPT/HCPCS: 88305; J2704